=== PATIENT | female | born 1995 | race American Indian/Alaskan Native ===

== ENCOUNTER 2016-06-11 10:10 | Emergency (ER) | payer OTHER ==
[2016-06-11] MEDS ORDERED: MOTRIN PO ONE (11:07)
--- NOTE | 2016-06-11 12:05 | XRay Report ---
ROUTINE CHEST, TWO VIEWS: HISTORY: Cough. The trachea, heart, mediastinal contour, lung pace and bony thorax are unremarkable. IMPRESSION: Unremarkable chest x-ray.
--- NOTE | 2016-06-11 13:00 | Emergency Department Report ---
HPI - General Chief Complaint: Sore Throat Time Seen by Provider: 06/11/16 11:06 - HPI HPI: Patient here complaining that she she said that the past. Body aches, cough, fever, sinus pressure and that her chest hurts when she coughed. She reports pain is 9 out of 10 and SORE. She reports that she took [id number] cough and cold with some relief. She said hurts around her eyes. Denies any dizziness, headache or blurred vision. Denies any change in vision. Has any nausea vomiting. Denies any abdominal pain.Denies any drooling. He reports that this been going on for 3 weeks. She reports that she started having fever and chills and Thursday. ED Past Medical Hx - Past Medical History Previous Medical History?: No - Surgical History Past Surgical History?: No - Family History Family history: hypertension - Social History Smoking Status: Never Smoker Substance Use Type: None - Medications Home Medications: Home Medications Medication Instructions Recorded Confirmed Last Taken Type Amoxicillin [Amoxicillin TAB] 875 mg PO BID #20 tablet 06/11/16 Unknown Rx Fluticasone [Flonase] 1 spray NS QDAY #1 bottle 06/11/16 Unknown Rx Ibuprofen [Motrin] 600 mg PO Q8H PRN #21 tablet 06/11/16 Unknown Rx Loratadine [Claritin] 10 mg PO DAILY #15 tablet 06/11/16 Unknown Rx predniSONE [Deltasone] 50 mg PO QDAY #5 tab 06/11/16 Unknown Rx ED Review of Systems ROS: Stated complaint: COUGH/CP/HEADACHE Other details as noted in HPI Comment: All other systems reviewed and negative Constitutional: chills, fever Eyes: other (pain around eyes). denies: eye pain, eye discharge ENT: throat pain, congestion, other (sinus pressure). denies: ear pain Respiratory: cough. denies: shortness of breath, SOB with exertion, SOB at rest , stridor, wheezing Cardiovascular: chest pain (with coughing). denies: palpitations, edema, syncope Musculoskeletal: denies: back pain, arthralgia Skin: denies: rash Neurological: denies: headache, weakness, vertigo Physical Exam - Physical Exam Vital Signs: Vital Signs 06/11/16 10:58 Temperature 101 F H Pulse Rate 105 H Respiratory 18 Rate Blood Pressure 131/79 O2 Sat by Pulse 100 Oximetry General: This is a 20-year-old female well-nourished well-developed in no acute distress. Physical Exam: Head: Normocephalic atraumatic Mouth: Moist, no pharyngeal exudate or erythema. Uvula is midline and oral airway is patent. No gingival enlargement or dental tenderness. No facial swelling. No peritonsillar abscesses. Neck: Supple, no C-spine tenderness, no tracheal deviation. Nontender to palpate. no adenopathy Ears: Bilateral TMs congested without erythema .bilateral EAC without any redness swelling or drainage Eyes: Bilateral pupils equal and reactive to light, bilateral EOM intact. Bilateral sclera and conjunctiva without injection. Normal accommodation Nose: Mucosa moist, positive congestion with erythema. Positive clear drainage. maxillary and frontal sinus tender to palpate. Lungs: clear to auscultate bilaterally no rhonchi wheezes or rales. Normal work of breathing extremity; No CCE. +2 pulses. No neurovascular compromise Cardiovascular: S1-S2, tachycardic at 105 ,regular rhythm. No murmurs. Skin: clean Dry and intact no rash no lesions Psych: Normal mood and behavior ED Course Vital Signs 06/11/16 10:58 Temperature 101 F H Pulse Rate 105 H Respiratory 18 Rate Blood Pressure 131/79 O2 Sat by Pulse 100 Oximetry Vital Signs 06/11/16 06/11/16 10:58 13:42 Temperature 101 F H 98.4 F Pulse Rate 105 H 95 H Respiratory 18 18 Rate Blood Pressure 131/79 Blood Pressure 108/72 [Right] O2 Sat by Pulse 100 97 Oximetry - Reevaluation(s) Reevaluation #1: 06/11/16 13:37 Given Motrin 600 mg in emergency room. ED Medical Decision Making - Lab Data Rapid strep test negative and cultures are pending - EKG Data -: EKG Interpreted by Me (by ) Rate: tachycardia - EKG Data Interpretation: other (sinus tachycardia at 105. No acute ST abnormalities) - Radiology Data Radiology results: report reviewed Unremarkable chest x-ray - Medical Decision Making ED course:I Discussed the patient is in my physical findings she has a sinus infection and will be treated with antibiotic, Flonase, Claritin and steroids. I discussed with her that she will need to follow-up with her primary care physician in 2 days. I Discussed with patient that her strep test was negative cultures are pending and her chest x-ray is normal. Patient was given Motrin 600 mg by mouth for fever and sore throat. Condition discharged home with prescription for amoxicillin, Flonase, Claritin and, prednisone and Motrin. She voiced understanding of discharge instruction. Critical care attestation.: If time is entered above; I have spent that time in minutes in the direct care of this critically ill patient, excluding procedure time. ED Disposition Clinical Impression: Acute bacterial sinusitis, Fever in adult, Cough Acute pharyngitis Qualifiers: Pharyngitis/tonsillitis etiology: unspecified etiology Qualified Code(s): J02.9 - Acute pharyngitis, unspecified Disposition: DISCHARGED TO HOME OR SELFCARE Is pt being admited?: No Does the pt Need Aspirin: No Condition: Stable Instructions: Sinusitis (ED), Acute Cough (ED), Fever in Adults (ED), Pharyngitis (ED) Additional Instructions: Flush nostril filed with nasal saline Take medication as prescribed Prescriptions: Amoxicillin [Amoxicillin TAB] 875 mg PO BID #20 tablet Fluticasone [Flonase] 1 spray NS QDAY #1 bottle Ibuprofen [Motrin] 600 mg PO Q8H PRN #21 tablet PRN Reason: Pain Loratadine [Claritin] 10 mg PO DAILY #15 tablet predniSONE [Deltasone] 50 mg PO QDAY #5 tab Referrals: PRIMARY CARE [Primary Care Provider] - 06/13/16 Forms: Work/School Release Form(ED)
[2016-06-11 13:43] VITALS: BP 108/72
== END 2016-06-11 14:06 | disposition home or self-care (01) ==
LOC: ED 10:10
DX: J01.80 Other acute sinusitis (principal); B96.89 Other specified bacterial agents as the cause of diseases classified elsewhere; J02.9 Acute pharyngitis, unspecified
CPT/HCPCS: 71020; 87116; 87430

== ENCOUNTER 2016-07-11 04:38 | Emergency (ER) | payer OTHER ==
[2016-07-11 05:31] VITALS: BP 126/74
[2016-07-11 07:53] LABS: Bacteria,Urine 2+ /HPF (Negative); Bilirubin,Urine NEG (Negative); Blood,Urine NEG (Negative); Ketones,Urine TR mg/dL (Negative); Leukocyte Esterase,Urine LG (Negative); Mucus,Urine 3+ /HPF; Nitrite,Urine NEG (Negative); Urobilinogen,Urine < 2.0 mg/dL (<2.0)
--- NOTE | 2016-07-11 08:05 | Emergency Department Report ---
ED General Adult HPI - General Chief complaint: Urogenital-Female Stated complaint: VAGINAL PAIN Time Seen by Provider: 07/11/16 07:21 Source: patient Mode of arrival: Ambulatory Limitations: No Limitations - History of Present Illness Initial comments: PT c/o white discharge and vaginal irritation since yesterday. PT does report being sexually active. PT states she usually uses condoms. PT states the last time she had sex was Wed and there was no condom use. PT denies being concerned for STD because her and her partner got tested 2 months ago. PT also states the last time she had these symptoms, she had a yeast infection and that is what she thinks she has now MD Complaint: yeast infection Onset/Timin -: Gradual, days(s) Location: genitals Severity scale (0 -10): 10 Quality: burning, constant Consistency: constant Improves with: none Worsens with: none Associated Symptoms: denies other symptoms. denies: fever/chills, nausea/ vomiting - Related Data Previous Rx's Medication Instructions Recorded Last Taken Type Fluticasone [Flonase] 1 spray NS QDAY #1 bottle 06/11/16 Unknown Rx Ibuprofen [Motrin] 600 mg PO Q8H PRN #21 tablet 06/11/16 Unknown Rx Loratadine [Claritin] 10 mg PO DAILY #15 tablet 06/11/16 Unknown Rx Cyclobenzaprine [Flexeril] 10 mg PO TID PRN #15 tablet 07/08/16 Unknown Rx Naproxen [Naprosyn] 500 mg PO BID #20 tablet 07/08/16 Unknown Rx Fluconazole [Diflucan TAB] 150 mg PO ONCE #1 tablet 07/11/16 Unknown Rx Nitrofurantoin [place]/M-Cryst 100 mg PO Q12HR #14 capsule 07/11/16 Unknown Rx [Macrobid CAP] Allergies Allergy/AdvReac Type Severity Reaction Status Date / Time No Known Allergies Allergy Unverified 06/11/16 10:58 ED Review of Systems ROS: Stated complaint: VAGINAL PAIN Other details as noted in HPI Comment: All other systems reviewed and negative Gastrointestinal: as per HPI Genitourinary: discharge, other (thick whit discharge) Skin: denies: rash ED Past Medical Hx - Past Medical History Previous Medical History?: No - Surgical History Past Surgical History?: No - Social History Smoking Status: Never Smoker Substance Use Type: None - Medications Home Medications: Home Medications Medication Instructions Recorded Confirmed Last Taken Type Fluticasone [Flonase] 1 spray NS QDAY #1 bottle 06/11/16 Unknown Rx Ibuprofen [Motrin] 600 mg PO Q8H PRN #21 tablet 06/11/16 Unknown Rx Loratadine [Claritin] 10 mg PO DAILY #15 tablet 06/11/16 Unknown Rx Cyclobenzaprine [Flexeril] 10 mg PO TID PRN #15 tablet 07/08/16 Unknown Rx Naproxen [Naprosyn] 500 mg PO BID #20 tablet 07/08/16 Unknown Rx Fluconazole [Diflucan TAB] 150 mg PO ONCE #1 tablet 07/11/16 Unknown Rx Nitrofurantoin [place]/M-Cryst 100 mg PO Q12HR #14 capsule 07/11/16 Unknown Rx [Macrobid CAP] ED Physical Exam - General Limitations: No Limitations General appearance: alert, in no apparent distress - Head Head exam: Present: atraumatic, normocephalic - Eye Eye exam: Present: normal appearance - ENT ENT exam: Present: normal exam - Neck Neck exam: Present: normal inspection, full ROM. Absent: meningismus - Respiratory Respiratory exam: Present: normal lung sounds bilaterally. Absent: respiratory distress - Cardiovascular Cardiovascular Exam: Present: regular rate, normal rhythm, normal heart sounds - GI/Abdominal GI/Abdominal exam: Present: soft. 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 Absent: erythema Speculum exam: Present: vaginal discharge (moderate amount of thin white vaginal discharge with clumps of thick white discharge ). Absent: vaginal bleeding Bi-manual exam: Present: normal bi-manual exam. Absent: cervical motion tendernes, adnexal tenderness, adnexal mass, uterine tenderness - Extremities Exam Extremities exam: Present: normal inspection, full ROM. Absent: tenderness - Back Exam Back exam: Present: normal inspection. Absent: CVA tenderness (R), CVA tenderness (L) - Neurological Exam Neurological exam: Present: alert, oriented X3, normal gait - Psychiatric Psychiatric exam: Present: normal affect, normal mood - Skin Skin exam: Present: warm, dry, intact. Absent: rash ED Course Vital Signs 07/11/16 05:22 Temperature 98.5 F Pulse Rate 86 Respiratory 16 Rate Blood Pressure 126/74 O2 Sat by Pulse 100 Oximetry - Reevaluation(s) Reevaluation #1: 07/11/16 08:08 PT was on antibiotics last month. PT thinks she has a yeast infection now. PT has had recent unprotected sex. Spoke with pt on the importance of always using a barrier method. Reevaluation #2: 07/11/16 08:37 PT aware of labs. With pt's symptoms and PE findings, will treat for vaginal candidiasis - Pulse Oximetry Interpretation Digit-Finger Initial Pulse Oximetry Readin Actions Taken: none ED Medical Decision Making - Lab Data UA contaminated. However, pt does state her pain is worse with urination - Differential Diagnosis uti, pregancy, vaginitis Critical care attestation.: If time is entered above; I have spent that time in minutes in the direct care of this critically ill patient, excluding procedure time. ED Disposition Clinical Impression: UTI (urinary tract infection) Qualifiers: Urinary tract infection type: acute cystitis Hematuria presence: with hematuria Qualified Code(s): N30.01 - Acute cystitis with hematuria Vaginitis Qualifiers: Chronicity: acute Qualified Code(s): N76.0 - Acute vaginitis Disposition: DISCHARGED TO HOME OR SELFCARE Is pt being admited?: No Does the pt Need Aspirin: No Condition: Stable Instructions: Urinary Tract Infection in Women (ED), Vulvovaginal Candidiasis ( ED), Vaginitis (ED) Prescriptions: Fluconazole [Diflucan TAB] 150 mg PO ONCE #1 tablet Nitrofurantoin Tift/M-Cryst [Macrobid CAP] 100 mg PO Q12HR #14 capsule Referrals: PRIMARY CARE, [Primary Care Provider] - 3-5 Days Forms: Work/School Release Form(ED) Time of Disposition: 08:35
== END 2016-07-11 13:41 | disposition home or self-care (01) ==
LOC: ED 04:38
DX: N30.01 Acute cystitis with hematuria (principal); N76.0 Acute vaginitis
CPT/HCPCS: 81001; 81025; 87210; 87591; 99284

== ENCOUNTER 2016-10-11 15:32 | Emergency (ER) | payer OTHER ==
[2016-10-11] MEDS ORDERED: ZITHROMAX PO ONE (20:03)
[2016-10-11] MEDS ORDERED: ROCEPHIN IM ONE (20:03)
[2016-10-11] MEDS ORDERED: XYLOCAINE 1% MPF 5 mL INFILTRATI ONE (20:03)
--- NOTE | 2016-10-11 20:10 | Emergency Department Report ---
ED Female HPI - General Chief complaint: Urogenital-Female Stated complaint: VAG PAIN Time Seen by Provider: 10/11/16 19:40 Source: patient Mode of arrival: Ambulatory Limitations: No Limitations - History of Present Illness Initial comments: 21-year-old female past medical history Chlamydia infections in the past obesity presents with 5 days of vaginal discharge and sensation of dysuria. Patient denies any fevers chills no abdominal pain no nausea no vomiting denies any vaginal bleeding. Last menstrual period 10/02/2016. Patient is nontoxic appearing endorses mild increased urinary frequency. Also states she has whitish yellowish discharge from the vagina MD Complaint: vaginal discharge, dysuria, possible STD Onset/Timin -: days(s) Location: labia Quality: burning Worsens with: urination Are you Now?: No Last Menstrual Period: 10/02/16 EDC: 07/09/17 - Related Data Previous Rx's Medication Instructions Recorded Last Taken Type Fluconazole [Diflucan TAB] 150 mg PO ONCE #1 tablet 10/11/16 Unknown Rx Nitrofurantoin [place]/M-Cryst 100 mg PO Q12HR #14 capsule 10/11/16 Unknown Rx [Macrobid CAP] Allergies Allergy/AdvReac Type Severity Reaction Status Date / Time No Known Allergies Allergy Unverified 06/11/16 10:58 ED Review of Systems ROS: Stated complaint: VAG PAIN Other details as noted in HPI Constitutional: denies: chills, fever Eyes: denies: eye pain, eye discharge, vision change ENT: denies: ear pain, throat pain Respiratory: denies: cough, shortness of breath, wheezing Cardiovascular: denies: chest pain, palpitations Endocrine: no symptoms reported Gastrointestinal: denies: abdominal pain, nausea, diarrhea Genitourinary: dysuria, discharge. denies: urgency Musculoskeletal: denies: back pain, joint swelling, arthralgia Skin: denies: rash, lesions Neurological: denies: headache, weakness, paresthesias Psychiatric: denies: anxiety, depression Hematological/Lymphatic: denies: easy bleeding, easy bruising ED Past Medical Hx - Past Medical History Previous Medical History?: No - Surgical History Past Surgical History?: No - Social History Smoking Status: Never Smoker Substance Use Type: Non Opiate Pain - Medications Home Medications: Home Medications Medication Instructions Recorded Confirmed Last Taken Type Fluconazole [Diflucan TAB] 150 mg PO ONCE #1 tablet 10/11/16 Unknown Rx Nitrofurantoin [place]/M-Cryst 100 mg PO Q12HR #14 capsule 10/11/16 Unknown Rx [Macrobid CAP] ED Physical Exam - General Limitations: No Limitations General appearance: alert, in no apparent distress - Head Head exam: Present: atraumatic, normocephalic - Eye Eye exam: Present: normal appearance, PERRL, EOMI - ENT ENT exam: Present: mucous membranes moist - Neck Neck exam: Present: normal inspection - Respiratory Respiratory exam: Present: normal lung sounds bilaterally. Absent: respiratory distress - Cardiovascular Cardiovascular Exam: Present: regular rate, normal rhythm. Absent: systolic murmur, diastolic murmur, rubs, gallop - GI/Abdominal GI/Abdominal exam: Present: soft, normal bowel sounds - Speculum exam: Present: vaginal discharge (whitish-yellowish thick vag discharge ) - Extremities Exam Extremities exam: Present: normal inspection, full ROM - Back Exam Back exam: Present: normal inspection - Neurological Exam Neurological exam: Present: alert, oriented X3, CN II-XII intact, normal gait - Psychiatric Psychiatric exam: Present: normal affect, normal mood - Skin Skin exam: Present: warm, dry, intact, normal color. Absent: rash ED Course Vital Signs 10/11/16 15:54 Temperature 98.7 F Pulse Rate 98 H Respiratory 20 Rate Blood Pressure 136/86 O2 Sat by Pulse 99 Oximetry ED Medical Decision Making - Medical Decision Making A/P: Vaginal discharge, dysuria 1-patient treated empirically for chlamydia and gonorrhea with of azithromycin and ceftriaxone. No adnexal or cervical motion tenderness on clinical exam 2-wet prep shows no pelvic cells slight yeast treat with fluconazole 3-Macrobid as patient has many leuks and is complaining of dysuria. No clinical signs of pyelonephritis 4-follow-up with primary care and [facility] Critical care attestation.: If time is entered above; I have spent that time in minutes in the direct care of this critically ill patient, excluding procedure time. ED Disposition Clinical Impression: Vaginal discharge, Dysuria Disposition: DC-01 TO HOME OR SELFCARE Is pt being admited?: No Does the pt Need Aspirin: No Condition: Stable Instructions: Urinary Tract Infection in Women (ED), Cervicitis (ED) Prescriptions: Fluconazole [Diflucan TAB] 150 mg PO ONCE #1 tablet Nitrofurantoin [place]/M-Cryst [Macrobid CAP] 100 mg PO Q12HR #14 capsule Referrals: [facility] [Provider Group] - 3-5 Days [facility] [Outside] - 3-5 Days Time of Disposition: 20:32
[2016-10-11 20:21] LABS: Bilirubin,Urine NEG (Negative); Blood,Urine NEG (Negative); Ketones,Urine NEG (Negative); Leukocyte Esterase,Urine MOD (Negative); Mucus,Urine 3+ /HPF; Nitrite,Urine NEG (Negative); Protein,Urine <15 mg/dL mg/dL (Negative); Urobilinogen,Urine < 2.0 mg/dL (<2.0)
[2016-10-11 20:32] VITALS: BP 128/80
[2016-10-11] MEDS ORDERED: WATER FOR INJ (PF) 10 ML ONE (21:46)
== END 2016-10-11 20:55 | disposition home or self-care (01) ==
LOC: ED 15:32
DX: N89.8 Other specified noninflammatory disorders of vagina (principal); R30.0 Dysuria
CPT/HCPCS: 81001; 81025; 87086; 87210; 87591; 96372; 99284; J0696